=== PATIENT | male | born 1955 | race Caucasian/White ===

== ENCOUNTER 2023-05-17 05:51 | Day surgery (SDC) | payer MEDICARE ==
[2023-05-15 15:04] VITALS: BMI 31.4
[2023-05-17] MEDS ORDERED: Bupivacaine PF 0.5% 30 ML VIAL ONE (06:34)
[2023-05-17] MEDS ORDERED: EPINEPHrine 1 MG/ML VIAL ONE (06:34)
[2023-05-17] MEDS ORDERED: Thrombin 5000 UNITS/5 ML VIAL ONE (06:34)
[2023-05-17] MEDS ORDERED: Lidocaine 1% PF 5 ML VIAL ONE (07:03)
[2023-05-17] MEDS ORDERED: Rocuronium Bromide 10 MG/ML (10ML VIAL) ONE (07:03)
[2023-05-17] MEDS ORDERED: PROPOFOL 0 ML ONE (07:03)
[2023-05-17] MEDS ORDERED: fentaNYL PF 100 MCG/2 ML SYRINGE ONE ×2 (07:03→09:11)
[2023-05-17] MEDS ORDERED: Sodium Chloride 0.9% 100 ML ONE ×3 (07:07→11:27)
[2023-05-17] MEDS ORDERED: CEFAZOLIN 2 GM VIAL ONE ×2 (07:07→11:27)
[2023-05-17] MEDS ORDERED: Dexamethasone 4 mg/ml Vial ONE (08:15)
[2023-05-17] MEDS ORDERED: Dexmedetomidine 200 MCG/2 ML VIAL ONE (08:39)
[2023-05-17] MEDS ORDERED: PROPOFOL 20 ML ONE (09:00)
[2023-05-17] MEDS ORDERED: Ondansetron PF 4 MG/2 ML Vial ONE (09:01)
[2023-05-17] MEDS ORDERED: Glycopyrrolate 0.2 MG/ML 5 ML SYRINGE ONE (09:02)
[2023-05-17] MEDS ORDERED: NEOSTIGMINE 3 MG/3 ML SYR 3 MG/3 ML SYRINGE ONE (09:05)
[2023-05-17] MEDS ORDERED: Tamsulosin HCl 0.4 MG CAP ONE (10:55)
== END 2023-05-17 13:05 | disposition home or self-care (01) ==
LOC: SDC 05:51
PROVIDERS: ATTEND Neurological Surgery
PROC: 01NB0ZZ Release Lumbar Nerve, Open Approach (ICD-10-PCS; principal; 2023-05-17)
DX: M48.061 Spinal stenosis, lumbar region without neurogenic claudication (principal); M54.16 Radiculopathy, lumbar region; M71.38 Other bursal cyst, other site
CPT/HCPCS: 63267; J0171; J0665; J1100; J2405; J2704; J3490